=== PATIENT | female | born 2000 | race Caucasian/White ===

== ENCOUNTER 2021-11-27 21:24 | Emergency (ER) | payer BC ==
[~2021-11-27] VITALS: Ht 157.5 cm; Wt 52.2 kg
[2021-11-27 21:44] VITALS: BP_SYST 129
[2021-11-27] MEDS ORDERED: LISD60TA PO (21:51)
[2021-11-27] MEDS ORDERED: ETHI1TAB31 PO (21:51)
--- NOTE | 2021-11-27 21:53 | NUR ---
Patient triaged and placed in waiting room. VS checked and patient appears in no acute distress at this time. Accompanied by family, awaiting available bed, and MD notified of need for MSE.
[2021-11-28] MEDS ORDERED: LIDOCAINE 1%, 20 ML MDV 20 ML ONE (00:24)
[2021-11-28] MEDS ORDERED: LIDOCAINE 1% 10 MG/ML, 20 ML MDV INJ ONE (00:30)
--- NOTE | 2021-11-28 01:05 | NUR ---
ANU Knight at bedside examining patient.
--- NOTE | 2021-11-28 01:08 | NUR ---
Pt states she feels lightheaded BS @79 Pt given apple juice Will continue to monitor
[2021-11-28] MEDS ORDERED: BACITRACIN 1 GM OINT TP ONE (01:48)
[2021-11-28 02:12] VITALS: BP_SYST 112
--- NOTE | 2021-11-28 02:12 | NUR ---
Patient given written and verbal discharge instructions and verbalizes understanding. ER MD discussed with patient the results and treatment given. Patient educated on pain management and to follow up with PMD. Pain Scale 0/10 Opportunity for questions provided and answered. Medication side effect fact sheet provided.
== END 2021-11-28 02:12 | disposition home or self-care (01) ==
LOC: SED 21:24
DX: S61.211A Laceration without foreign body of left index finger without damage to nail, initial encounter (principal); S61.213A Laceration without foreign body of left middle finger without damage to nail, initial encounter; W26.0XXA Contact with knife, initial encounter; Y93.89 Activity, other specified; Y92.89 Other specified places as the place of occurrence of the external cause; Y99.8 Other external cause status
CPT/HCPCS: 12001; 99283; J2001